=== PATIENT | female | born 1970 | race Caucasian/White ===

== ENCOUNTER 2018-03-07 14:55 | Observation (INO) | payer SELFPAY ==
[~2018-03-07] VITALS: Ht 165.1 cm; Wt 62.0 kg
[2018-03-07 15:40] LABS: BASO % 0.5 % (0.0-2.0); EOS # 0.1 (0.0-0.7); EOS % 3.2 % (0-4.0); GRAN % 52.9 % (42.2-75.2); LYMPH # 1.3 (1.2-3.4); MEAN CELL VOLUME 73 fl (80.0-100.0); MEAN CORPUSCULAR HGB CONC 33 g/dl (33.0-37.0); MEAN PLATELET VOLUME 10.2 fl (7.4-10.4); MONO # 0.3 (0.1-0.6); MONO % 9.1 % (1.7-9.3); PLATELET COUNT 235 K/mm3 (130-400); RED BLOOD COUNT 2.29 M/mm3 (4.10-5.30); REDCELL DISTRIBUTION WIDTH-CV 18.6 % (11.5-14.5)
[2018-03-07 15:46] LABS: ALBUMIN 4.1 gm/dL (3.5-5.0); BILIRUBIN,TOTAL 0.2 mg/dL (0.0-1.0); CALCIUM 9.2 mg/dL (8.4-10.2); CREATININE, serum 0.99 mg/dL (0.52-1.25); POTASSIUM 3.6 mmol/L (3.4-5.0); TOTAL PROTEIN 6.8 gm/dL (6.4-8.2)
[2018-03-07 15:54] LABS: HEMATOCRIT 16.6 % (37.0-47.0); HEMOGLOBIN 5.4 g/dl (12.5-16.0); MEAN CORPUSCULAR HEMOGLOBIN 24 pg (27.0-31.0)
[2018-03-07 16:31] LABS: COLLECTION METHOD CLEAN CATCH
[2018-03-07 16:33] LABS: PROTHROMBIN TIME 10.8 SECONDS (9.7-12.8)
[2018-03-07 16:36] LABS: PARTIAL THROMBOPLASTIN TIME 34.9 SECONDS (26.0-37.0)
[2018-03-07 16:37] LABS: PH 9 (5-8); SQUAMOUS EPITHELIAL 0-2 /hpf; URINE APPEARANCE Clear; URINE BACTERIA None Seen /hpf; URINE BILIRUBIN Negative (NEGATIVE); URINE BLOOD 2+ (NEGATIVE); URINE COLOR Straw; URINE GLUCOSE Negative (NEGATIVE); URINE KETONE Trace (NEGATIVE); URINE LEUKOCYTE ESTERASE Trace (NEGATIVE); URINE NITRATE Negative (NEGATIVE); URINE PROTEIN(semi-quant) Negative (NEGATIVE); URINE RBC 0-2 /hpf; URINE UROBILINOGEN Negative (NEGATIVE)
[2018-03-07 17:56] LABS: RETIC # 0.03 M/mm3 (0.02-0.16); RETIC % 1.4 % (0.5-3.52)
[2018-03-07 18:01] LABS: IRON,SERUM < 10 ug/dL (35-150); LACTATE DEHYDROGENASE 380 U/L (313-618)
[2018-03-07 18:11] LABS: TOTAL IRON BINDING CAPACITY 438 ug/dL (265-497)
[2018-03-07 18:38] LABS: FERRITIN 3 ng/mL (6-137)
[2018-03-07 18:52] VITALS: BP 101/69; PULSE 73; TEMP 97.9
[2018-03-07 19:08] VITALS: BP 104/68; PULSE 69; TEMP 98
[2018-03-07] MEDS ORDERED: B-12 100 MCG PO (19:22)
[2018-03-07] MEDS ORDERED: VITAMIN B-6100 MG PO (19:23)
[2018-03-07 21:34] VITALS: BP 114/78; PULSE 64; TEMP 98.4
[2018-03-07] MEDS ORDERED: OMEGA-3 1000 MG1 CAP PO (22:28)
[2018-03-07 22:40] VITALS: BP 118/72; PULSE 68; PULSE 76; TEMP 98.3
[2018-03-08 00:01] VITALS: BP 99/55; PULSE 60; TEMP 98
[2018-03-08 00:15] VITALS: BP 99/55; PULSE 60; TEMP 98.9
[2018-03-08 01:31] LABS: HEMATOCRIT 23.2 % (37.0-47.0); HEMOGLOBIN 7.6 g/dl (12.5-16.0)
[2018-03-08 08:10] VITALS: BP 105/66; PULSE 58; TEMP 98.8
[2018-03-08 08:14] LABS: HEMATOCRIT 23.9 % (37.0-47.0); HEMOGLOBIN 7.7 g/dl (12.5-16.0); MEAN CELL VOLUME 79 fl (80.0-100.0); MEAN CORPUSCULAR HEMOGLOBIN 25 pg (27.0-31.0); MEAN CORPUSCULAR HGB CONC 32 g/dl (33.0-37.0); MEAN PLATELET VOLUME 10.5 fl (7.4-10.4); PLATELET COUNT 198 K/mm3 (130-400); RED BLOOD COUNT 3.04 M/mm3 (4.10-5.30); REDCELL DISTRIBUTION WIDTH-CV 17.6 % (11.5-14.5)
[2018-03-08] MEDS ORDERED: FERROUS SU325 MG/TAB PO (08:54)
[2018-03-08 08:55] LABS: BAND 4 % (0-10); BASOPHIL 3 % (0-2); EOSINOPHIL 6 % (0-4); LYMPHOCYTE 32 % (20.0-51.0); NEUTROPHILS 48 % (42.0-75.2)
[2018-03-08 08:57] LABS: HYPOCHROMIA 1+; PLATELET ESTIMATE NORMAL (NORMAL)
[2018-03-08 08:58] LABS: ANISOCYTOSIS 1+; MICROCYTOSIS 1+
== END 2018-03-08 11:32 | disposition home or self-care (01) ==
LOC: COL.ER 14:55 → MEDICAL 17:53
PROVIDERS: Emergency Medicine; Internal Medicine
DX: D53.9 Nutritional anemia, unspecified (principal); N92.0 Excessive and frequent menstruation with regular cycle; R55 Syncope and collapse; Z79.4 Long term (current) use of insulin
CPT/HCPCS: G0378; J7030; P9016

== ENCOUNTER → 2018-12-01 | Outpatient (CLI) | payer OTHER ==
[~2018-12-01] MED LIST: B-12 100 MCG PO; FERROUS SU325 MG/TAB PO; OMEGA-3 1000 MG1 CAP PO; VITAMIN B-6100 MG PO
[2018-12-01 10:48] LABS: BASO % 1.5 % (0.0-2.0); EOS # 0.2 (0.0-0.7); EOS % 7.3 % (0-4.0); GRAN # 1.2 (1.4-6.5); GRAN % 47.3 % (42.2-75.2); HEMATOCRIT 28.5 % (37.0-47.0); HEMOGLOBIN 8.8 g/dl (12.5-16.0); LYMPH # 0.8 (1.2-3.4); LYMPH % 30.2 % (20.0-51.0); MEAN CELL VOLUME 76 fl (80.0-100.0); MEAN CORPUSCULAR HEMOGLOBIN 24 pg (27.0-31.0); MEAN CORPUSCULAR HGB CONC 31 g/dl (33.0-37.0); MEAN PLATELET VOLUME 10.1 fl (7.4-10.4); MONO # 0.4 (0.1-0.6); MONO % 13.7 % (1.7-9.3); PLATELET COUNT 272 K/mm3 (130-400); RED BLOOD COUNT 3.74 M/mm3 (4.10-5.30); REDCELL DISTRIBUTION WIDTH-CV 24.7 % (11.5-14.5)
== END ==
LOC: COL.LAB 10:04
PROVIDERS: Surgery
DX: Z02.71 Encounter for disability determination (principal)

== ENCOUNTER 2019-01-31 07:33 | Inpatient (IN) | payer OTHER ==
[~2019-01-31] VITALS: Ht 165.1 cm; Wt 58.9 kg
[2019-01-31] VITALS (7 sets, daily range): BP systolic 109–142; BP diastolic 68–88; PULSE 66–84; TEMP 97.3–99.4
[2019-01-31 07:56] LABS: BASO # 0.1 (0.0-0.2); BASO % 1.7 % (0.0-2.0); EOS # 0.2 (0.0-0.7); EOS % 6.7 % (0-4.0); GRAN # 1.3 (1.4-6.5); GRAN % 41.8 % (42.2-75.2); LYMPH # 1.1 (1.2-3.4); LYMPH % 37.5 % (20.0-51.0); MEAN CELL VOLUME 83 fl (80.0-100.0); MEAN CORPUSCULAR HGB CONC 32 g/dl (33.0-37.0); MEAN PLATELET VOLUME 9.7 fl (7.4-10.4); MONO # 0.4 (0.1-0.6); PLATELET COUNT 193 K/mm3 (130-400); REDCELL DISTRIBUTION WIDTH-CV 20.3 % (11.5-14.5)
[2019-01-31 08:04] LABS: HEMATOCRIT 23.1 % (37.0-47.0); HEMOGLOBIN 7.3 g/dl (12.5-16.0); MEAN CORPUSCULAR HEMOGLOBIN 26 pg (27.0-31.0)
[2019-01-31 08:06] LABS: ALBUMIN 4.5 gm/dL (3.5-5.0); BILIRUBIN,TOTAL 0.2 mg/dL (0.0-1.0); CALCIUM 8.5 mg/dL (8.4-10.2); CREATININE, serum 0.82 (0.52-1.25); TOTAL PROTEIN 7.5 gm/dL (6.4-8.2)
[2019-01-31 08:08] LABS: POTASSIUM 2.9 mmol/L (3.4-5.0)
[2019-01-31 10:09] LABS: COLLECTION METHOD CATHETER
[2019-01-31 10:18] LABS: PH 8 (5-8); SQUAMOUS EPITHELIAL None Seen /hpf; URINE APPEARANCE Clear; URINE BACTERIA None Seen /hpf; URINE BILIRUBIN Negative (NEGATIVE); URINE BLOOD Negative (NEGATIVE); URINE COLOR Colorless; URINE GLUCOSE Negative (NEGATIVE); URINE KETONE Negative (NEGATIVE); URINE LEUKOCYTE ESTERASE Negative (NEGATIVE); URINE NITRATE Negative (NEGATIVE); URINE PROTEIN(semi-quant) Negative (NEGATIVE); URINE RBC 0-2 /hpf; URINE UROBILINOGEN Negative (NEGATIVE)
--- NOTE | 2019-01-31 10:30 | NUR ---
PT ADMITTED TO FLOOR AT THIS TIME.
--- NOTE | 2019-01-31 11:30 | NUR ---
PT STATING THAT SHE HAS BEEN GETTING DIZZY, HAS HEADACHES AND HAS SOME DOUBLE VISION THAT HAS OCCURED WITH THE BLEEDING SHE HAS BEEN HAVING. SOME NOTED ABD PAIN AND PAIN WITH VOIDING. FRIEND AT BEDSIDE AT THIS TIME. PT REPORTS FEELING COLD, THIS NURSE PROVIDED WARM BLANKET AND AJUSTED ROOM TEMPERATURE. PT VOICING CONSERN ABOUT DISCHARGE AND WANTING TO GET BLOOD TRANSFUSION THEN WANTS TO GO HOME.
--- NOTE | 2019-01-31 13:00 | NUR ---
PT LAYING IN BED RESTING WITH EYES CLOSED AT THIS TIME. NO ISSUES OR CONSERNS VOICED RIGHT NOW.
[2019-01-31 14:38] LABS: CALCIUM 8.5 mg/dL (8.4-10.2); CREATININE, serum 0.82 (0.52-1.25); POTASSIUM 4.1 mmol/L (3.4-5.0)
--- NOTE | 2019-01-31 14:41 | NUR ---
THIS NURSE AND DR GAR CALLED THE [facility] FINISH[facility]. PATIENT EDUCATION AND VERBAL CONSENT WAS GIVEN ABOUT OBTAINING A TRANSVAGINAL ULRASOUND AND BIOPSY AND POSSIBLE ABLASION. THIS NURSE CALLED ULTRASOUND THEY STATED WE WOULD HAVE TO GET A NEW ORDER. THIS NURSE CALLED DOCTOR CORRALES FOR ORDER. DR CORRALES TOLD THIS NURSE THAT WE COULD SET UP SOMETHING OUTPATIENT THAT WOULD BE GOOD DUE TO HIM HAVING A BUSY SCHEDULE TOMORROW. THIS NURSE CALLED DR. GAR AND INFORMED HER OF PROVIDER RESPONSE.
--- NOTE | 2019-01-31 15:00 | NUR ---
PT IS TO GET BLOOD TODAY, AND AT ABOUT NOON TOMORROW DR. CORRALES GOING TO DO PT PROCEDURE. PT WAS NOTIFIED OF THIS. PT EXPRESSED CONSERN ABOUT HER CATS AT HOME AND THAT SHE DOESNT HAVE ENOUGH FOOD FOR THEM AND WONDERED IF SHE WAS ABLE TO LEAVE AND TAKE CARE OF THEM. THIS NURSE INFORMED PATIENT THAT SHE WASNT ABLE TO LEAVE AND THAT IT WOULD BE BEST IF SHE WOULD BE ABLE TO FIND A FRIEND OR SOMEONE WHO COULD CHECK IN ON THEM.
--- NOTE | 2019-01-31 19:13 | NUR ---
THIS NURSE GOT BLOOD CONSENT SIGNED AND ATTEMPTED TO START SECOND IV SITE FOR BLOOD ADMINISTERATION DUE TO FLUID RUNNING THROUGH THE OTHER IV. BLOOD BANK STAFF NOTIFIED ABOUT ORDER. PASSED ON TO BRASS SORTER NURSE ABOUT ORDER AND THAT BLOOD WASNT READY IN BLOOD BANK AT THIS TIME. THIS NURSE HAD TO REENTER LAB ORDER FOR BLOOD BANK, IT DIDNT SHOW UP PREVIOUSLY IN OTHER ORDER.
--- NOTE | 2019-01-31 20:58 | NUR ---
One unit of PRBC's started at this time. Pt. informed of s/s of transfusion reaction. Pt. voices understanding. Will remain with pt. for first 15 minutes of transfusion.
--- NOTE | 2019-01-31 21:13 | NUR ---
Pt. remains stable after first 15 minutes of Blood transfusion. Vitals remains stable. Pt. denies needs.
--- NOTE | 2019-01-31 21:30 | NUR ---
RECIEVED REPORT FROM VAMSI ALVAREZ.
--- NOTE | 2019-01-31 22:18 | NUR ---
PT RESTING IN BED- NO PAIN. BLOOD TRANSFUSION CURRENTLY RUNNING- VITALS UNCHANGED. NO CONCERNS AT THIS TIME. NO NEEDS. CALL LIGHT IN REACH
--- NOTE | 2019-02-01 | NUR ---
BLOOD TRANSFUSION COMPLETE- VSS. REPORTS NO NEEDS. CALL LIGHT IN REACH.
[2019-02-01 04:50] VITALS: BP 110/63; PULSE 77; TEMP 98.2
[2019-02-01 06:03] LABS: BASO % 0.9 % (0.0-2.0); EOS # 0.2 (0.0-0.7); EOS % 3.8 % (0-4.0); GRAN # 2.6 (1.4-6.5); GRAN % 62.1 % (42.2-75.2); LYMPH % 23.1 % (20.0-51.0); MEAN CELL VOLUME 84 fl (80.0-100.0); MEAN CORPUSCULAR HGB CONC 32 g/dl (33.0-37.0); MEAN PLATELET VOLUME 9.8 fl (7.4-10.4); MONO # 0.4 (0.1-0.6); MONO % 9.9 % (1.7-9.3); PLATELET COUNT 193 K/mm3 (130-400); RED BLOOD COUNT 2.96 M/mm3 (4.10-5.30); REDCELL DISTRIBUTION WIDTH-CV 19.4 % (11.5-14.5)
[2019-02-01 06:07] LABS: HEMATOCRIT 24.9 % (37.0-47.0); HEMOGLOBIN 7.9 g/dl (12.5-16.0); MEAN CORPUSCULAR HEMOGLOBIN 27 pg (27.0-31.0)
[2019-02-01 06:17] LABS: CALCIUM 8.2 mg/dL (8.4-10.2); CREATININE, serum 1.03 (0.52-1.25); POTASSIUM 4.7 mmol/L (3.4-5.0)
--- NOTE | 2019-02-01 06:24 | NUR ---
pt had an uneventful night. reported no pain. iv flushes well with iv fluids running at ordered rate. one unit of PRBC given, no chnge in vitals, no reaction. pt npo for procedure later today. no needs at this tiem. call light in reach
--- NOTE | 2019-02-01 07:19 | NUR ---
report given to VAMSI Muñoz. pt sleeping at this time
[2019-02-01 07:50] VITALS: BP 105/83; PULSE 69; TEMP 98.8
--- NOTE | 2019-02-01 11:10 | NUR ---
Plan: Plan is to return home. Patient reports independent living has a friend Austen that will transport her home and assist her in care needs . Assess: SW met with patient in room. Patient speaks [place] but can understand if slow speaking. Dialect heavy but able to understand. Patient reports that she does not have any family close by but resides in town. Patient reports that her niegbhor is the close contact that she has that could make out her wishes but denies having a current phone number. Patient denies the use of any DME's. Patient denies having a PCP. Patient reports that she will use [facility] for medications. (Interpret line ) [phone] if needed. Action: SW educated patient on support services and community resources. No additonal needs at this time. SW will continue to follow for care needs.
--- NOTE | 2019-02-01 11:26 | NUR ---
First visit from the test case developer. No needs right now.
[2019-02-01 11:31] VITALS: BP 121/80; PULSE 62; TEMP 97.8
[2019-02-01 15:21] VITALS: BP 113/74; PULSE 60; TEMP 98.7
--- NOTE | 2019-02-01 16:30 | NUR ---
PT GOING DOWN FOR PROCEDURE BRIEFLY. PREOP LR STARTED, CONSENT ON CHART. PT EDUCATED THAT SHE WOULD BE GOING TO PROCDURE SOON, PT STILL IN AGREANCE TO PROCEDURE. NO QUESTIONS VOICED AT THIS TIME.
[2019-02-01] MEDS ORDERED: IBU600 MG PO (17:52)
[2019-02-01] MEDS ORDERED: LEVOXYL0.025 MG PO (18:03)
[2019-02-01] MEDS ORDERED: FERRO-TIME325 MG PO (18:03)
[2019-02-01 18:27] VITALS: BP 136/85; PULSE 62; TEMP 97.5
--- NOTE | 2019-02-01 18:30 | NUR ---
PT RETURNED FROM PROCEDURE. POST OP VITALS STARTED ON PT. OR STATED SHE HAS VOIDED ALREADY. MEAL TRAY ORDERED FOR PT. NO ISSUES OR CONSERNS VOICED AT THIS TIME.
--- NOTE | 2019-02-01 19:25 | NUR ---
THIS NURSE AND NATHAN VELASQUEZ, CALLED [facility] AND TALKED ABOUT DISCHARGE WITH [facility].
--- NOTE | 2019-02-01 20:08 | NUR ---
PT EDUCATION WAS PROVIDED. IV REMOVED. THIS NURSE PROVIDED A COPY OF THE [facility] INFORMATION, FACILITY WAS FAXED PT INFORMATION AND WAS INSTRUCTED TO GIVE PT A CALL.
== END 2019-02-01 20:18 | disposition home or self-care (01) | DRG 744 ==
LOC: COL.ER 07:33 → MEDICAL 08:32
PROVIDERS: Emergency Medicine; Obstetrics & Gynecology; ADMIT Family Medicine
PROC: 0UDB8ZX Extraction of Endometrium, Via Natural or Artificial Opening Endoscopic, Diagnostic (ICD-10-PCS; principal; 2019-02-01 17:00)
DX: N92.0 Excessive and frequent menstruation with regular cycle (principal); D62 Acute posthemorrhagic anemia; N93.8 Other specified abnormal uterine and vaginal bleeding; N80.0 Endometriosis of uterus; E87.6 Hypokalemia; E03.9 Hypothyroidism, unspecified; Z87.891 Personal history of nicotine dependence
CPT/HCPCS: 99222-AI; 99232-AI; J2405; J2704; J3010; J3475; J3480; J7030; P9016

== ENCOUNTER 2019-04-02 23:03 | Inpatient (IN) | payer SELFPAY ==
[~2019-04-02] VITALS: Ht 165.1 cm; Wt 62.6 kg
[~2019-04-02 23:03] MED LIST changes: +FERRO-TIME325 MG PO; +IBU600 MG PO; +LEVOXYL0.025 MG PO
[2019-04-02 23:55] LABS: MEAN CELL VOLUME 80 fl (80.0-100.0); MEAN CORPUSCULAR HGB CONC 30 g/dl (33.0-37.0); MEAN PLATELET VOLUME 10.3 fl (7.4-10.4); PLATELET COUNT 276 K/mm3 (130-400); RED BLOOD COUNT 1.47 M/mm3 (4.10-5.30); REDCELL DISTRIBUTION WIDTH-CV 18.4 % (11.5-14.5)
[2019-04-02 23:58] LABS: HEMATOCRIT 11.7 % (37.0-47.0); HEMOGLOBIN 3.5 g/dl (12.5-16.0); MEAN CORPUSCULAR HEMOGLOBIN 24 pg (27.0-31.0)
[2019-04-03] VITALS (39 sets, daily range): BP systolic 90–143; BP diastolic 69–99; PULSE 7–91; TEMP 97.3–97.9; O2SAT 100
[2019-04-03 00:03] LABS: PROTHROMBIN TIME 12.1 SECONDS (9.7-12.8)
[2019-04-03 00:05] LABS: PARTIAL THROMBOPLASTIN TIME 28.7 SECONDS (26.0-37.0)
[2019-04-03 00:10] LABS: ALANINE AMINOTRANSFERASE 9 U/L (9-52); ALBUMIN 3.9 gm/dL (3.5-5.0); ALKALINE PHOSPHATASE 46 U/L (50-136); ANION GAP 8 mmol/L (7-16); AST,SGOT 26 U/L (15-37); BILIRUBIN,TOTAL 0.2 mg/dL (0.0-1.0); BLOOD UREA NITROGEN 11 mg/dL (7-17); C-REACTIVE PROTEIN < 0.5 mg/dL (0.0-0.9); CALCIUM 8.5 mg/dL (8.4-10.2); CARBON DIOXIDE 23 mmol/L (22-30); CHLORIDE 106 mmol/L (98-107); CREATININE, serum 1.03 (0.52-1.25); GLUCOSE 87 mg/dL (74-106); LIPASE 168 U/L (23-300); SODIUM 138 mmol/L (137-145); TOTAL PROTEIN 6.6 gm/dL (6.4-8.2)
[2019-04-03 00:19] LABS: TROPONIN-I < 0.012 ng/mL (0.000-0.035)
--- NOTE | 2019-04-03 01:10 | NUR ---
RECEIVED REPORT FROM VAMSI OLGUIN.
--- NOTE | 2019-04-03 01:20 | NUR ---
PATIENT ARRIVED BY WHEELCHAIR TO ICU ROOM 5. PATIENT AMBULATED TO THE BED. VITAL SIGNS WERE OBTAINED AND SKIN WAS ASSESSED. NO SKIN ISSUES OBSERVED. PATIENT APPEARS PALE AND FATIGUED. CARE TAKEN OVER AT THIS TIME.
--- NOTE | 2019-04-03 03:14 | NUR ---
BLOOD HAS BEEN TRANSFUSING FOR THE LAST HOUR. PATIENT IS TOLERATING WELL. VITALS ARE WITHIN NORMAL LIMTIS.
[2019-04-03 04:19] LABS: COLLECTION METHOD CLEAN CATCH
[2019-04-03 04:27] LABS: PH 6 (5-8); SQUAMOUS EPITHELIAL 0-2 /hpf; URINE APPEARANCE Hazy; URINE BACTERIA Rare /hpf; URINE BILIRUBIN Negative (NEGATIVE); URINE BLOOD 3+ (NEGATIVE); URINE COLOR Red; URINE GLUCOSE Negative (NEGATIVE); URINE KETONE Negative (NEGATIVE); URINE LEUKOCYTE ESTERASE Negative (NEGATIVE); URINE NITRATE Negative (NEGATIVE); URINE PROTEIN(semi-quant) 2+ (NEGATIVE); URINE RBC >50 /hpf; URINE UROBILINOGEN Negative (NEGATIVE)
--- NOTE | 2019-04-03 06:56 | NUR ---
SECOND BAG OF BLOOD STARTED AT 0613. PATIENT IS TOLERATING WELL. VITALS WITHIN NORMAL LIMITS. PATIENT DENIES ANY DISCOMFORT.
--- NOTE | 2019-04-03 07:30 | NUR ---
REPORT GIVEN TO VAMSI WOOD.
--- NOTE | 2019-04-03 12:15 | NUR ---
Initial visit; Patient thanked Weight Engineer for letting her know that a Weight Engineer visits not only when someone is dying. Weight Engineer listened, answered questions and offered empathy and future availability. There is some language barrier but Weight Engineer understands there is a kitten that patient is anxious to get home to.
--- NOTE | 2019-04-03 13:19 | NUR ---
SW attended clinical rounds to discuss discharge planning. Patient reports that she in not interested in surgical intervention at this time and does not want to be seen by OBGYN during this admission. Patient would like to consider her options before deciding to do surgery. Patient does not currently have a primary care doctor but has been scheduled with the [facility] in the past. Patient reports she is agreeable to going to the Clinic again. Patient reports is independent at home and does not use any medical equipment or home health services. Patient does not have insurance but reports she has applied for disability and is waiting for approval. SW reported that a financial counselor will meet with patient about financial assistance. No needs at this time.
[2019-04-03 16:25] LABS: BASO % 1.2 % (0.0-2.0); EOS # 0.1 (0.0-0.7); EOS % 3.8 % (0-4.0); GRAN # 2.1 (1.4-6.5); GRAN % 60.8 % (42.2-75.2); LYMPH # 0.8 (1.2-3.4); LYMPH % 23.5 % (20.0-51.0); MEAN CELL VOLUME 81 fl (80.0-100.0); MEAN CORPUSCULAR HGB CONC 34 g/dl (33.0-37.0); MEAN PLATELET VOLUME 10.1 fl (7.4-10.4); MONO # 0.4 (0.1-0.6); MONO % 10.4 % (1.7-9.3); PLATELET COUNT 285 K/mm3 (130-400); RED BLOOD COUNT 3.21 M/mm3 (4.10-5.30); REDCELL DISTRIBUTION WIDTH-CV 16.7 % (11.5-14.5)
[2019-04-03 16:29] LABS: HEMATOCRIT 26.1 % (37.0-47.0); HEMOGLOBIN 8.8 g/dl (12.5-16.0); MEAN CORPUSCULAR HEMOGLOBIN 27 pg (27.0-31.0)
[2019-04-03 16:37] LABS: CALCIUM 8.5 mg/dL (8.4-10.2); CREATININE, serum 1.06 (0.52-1.25); POTASSIUM 4.1 mmol/L (3.4-5.0)
== END 2019-04-03 17:33 | disposition home or self-care (01) | DRG 812 ==
LOC: COL.ER 23:03 → ICU 04-03 00:41 → COL.ER 04-03 00:41 → ICU 04-03 17:33
PROVIDERS: Emergency Medicine; Hospitalist; Nurse Practitioner Family; ADMIT Student in an Organized Health Care Education/Training Program
DX: D62 Acute posthemorrhagic anemia (principal); F17.200 Nicotine dependence, unspecified, uncomplicated; E03.9 Hypothyroidism, unspecified; N92.1 Excessive and frequent menstruation with irregular cycle; N93.8 Other specified abnormal uterine and vaginal bleeding; Z79.1 Long term (current) use of non-steroidal anti-inflammatories (NSAID)
CPT/HCPCS: 99222-AI; 99239; P9016

== ENCOUNTER → 2019-06-05 | Outpatient (CLI) | payer SELFPAY ==
[2019-06-05 13:03] LABS: BASO # 0.1 (0.0-0.2); BASO % 2.3 % (0.0-2.0); EOS # 0.2 (0.0-0.7); EOS % 7.5 % (0-4.0); GRAN # 1.6 (1.4-6.5); GRAN % 51.6 % (42.2-75.2); LYMPH # 0.8 (1.2-3.4); LYMPH % 27.5 % (20.0-51.0); MEAN CELL VOLUME 76 fl (80.0-100.0); MEAN CORPUSCULAR HGB CONC 28 g/dl (33.0-37.0); MEAN PLATELET VOLUME 10.2 fl (7.4-10.4); MONO # 0.3 (0.1-0.6); MONO % 10.8 % (1.7-9.3); PLATELET COUNT 226 K/mm3 (130-400); REDCELL DISTRIBUTION WIDTH-CV 20.1 % (11.5-14.5)
[2019-06-05 13:09] LABS: HEMOGLOBIN 7.3 g/dl (12.5-16.0); MEAN CORPUSCULAR HEMOGLOBIN 21 pg (27.0-31.0)
[2019-06-05 13:10] LABS: HEMATOCRIT 25.8 % (37.0-47.0)
[2019-06-05 13:45] LABS: TSH w REFLEX 21.6 uIU/mL (0.465-4.680)
[2019-06-06 02:39] LABS: FOLATE (FOLIC ACID) 16.2 ng/mL (7.0-31.4)
== END ==
LOC: COL.LAB 11:52
PROVIDERS: Family Medicine
DX: E03.9 Hypothyroidism, unspecified (principal); D50.9 Iron deficiency anemia, unspecified

== ENCOUNTER → 2019-08-10 | Outpatient (CLI) | payer SELFPAY ==
[2019-08-10 19:46] LABS: HEMATOCRIT 27.3 % (37.0-47.0); HEMOGLOBIN 8.2 g/dl (12.5-16.0)
== END ==
LOC: ZLAB.FHCC 14:55
PROVIDERS: Family Medicine
DX: Z01.89 Encounter for other specified special examinations (principal)

== ENCOUNTER → 2019-09-19 | Outpatient (CLI) | payer SELFPAY ==
[2019-09-19 12:14] LABS: BASO # 0.1 (0.0-0.2); BASO % 1.8 % (0.0-2.0); EOS # 0.2 (0.0-0.7); EOS % 6.3 % (0-4.0); GRAN # 1.8 (1.4-6.5); GRAN % 53.7 % (42.2-75.2); LYMPH # 0.9 (1.2-3.4); LYMPH % 26.5 % (20.0-51.0); MEAN CELL VOLUME 79 fl (80.0-100.0); MEAN CORPUSCULAR HGB CONC 31 g/dl (33.0-37.0); MEAN PLATELET VOLUME 10.9 fl (7.4-10.4); MONO # 0.4 (0.1-0.6); MONO % 11.4 % (1.7-9.3); PLATELET COUNT 289 K/mm3 (130-400); RED BLOOD COUNT 3.87 M/mm3 (4.10-5.30); REDCELL DISTRIBUTION WIDTH-CV 24.4 % (11.5-14.5)
[2019-09-19 12:23] LABS: HEMATOCRIT 30.4 % (37.0-47.0); HEMOGLOBIN 9.3 g/dl (12.5-16.0); MEAN CORPUSCULAR HEMOGLOBIN 24 pg (27.0-31.0)
== END ==
LOC: ZLAB.FHCC 10:57
PROVIDERS: Family Medicine
DX: Z01.89 Encounter for other specified special examinations (principal)

== ENCOUNTER → 2019-11-01 | Outpatient (CLI) | payer SELFPAY ==
[2019-11-01 09:56] LABS: MEAN CELL VOLUME 82 fl (80.0-100.0); MEAN CORPUSCULAR HGB CONC 31 g/dl (33.0-37.0); MEAN PLATELET VOLUME 10.2 fl (7.4-10.4); PLATELET COUNT 191 K/mm3 (130-400); RED BLOOD COUNT 3.75 M/mm3 (4.10-5.30); REDCELL DISTRIBUTION WIDTH-CV 19.9 % (11.5-14.5)
[2019-11-01 09:58] LABS: HEMATOCRIT 30.9 % (37.0-47.0); HEMOGLOBIN 9.5 g/dl (12.5-16.0); MEAN CORPUSCULAR HEMOGLOBIN 25 pg (27.0-31.0)
== END ==
LOC: COL.RAD 09:21
PROVIDERS: Family Medicine
DX: D64.9 Anemia, unspecified (principal); E03.9 Hypothyroidism, unspecified; M54.5 Low back pain

== ENCOUNTER 2021-02-10 22:06 | Emergency (ER) | payer SELFPAY ==
[~2021-02-10] VITALS: Ht 165.1 cm; Wt 65.9 kg
[2021-02-10 23:45] LABS: BASO # 0.1 (0.0-0.2); BASO % 2.5 % (0.0-2.0); EOS # 0.3 (0.0-0.7); EOS % 9.8 % (0-4.0); GRAN # 1.1 (1.4-6.5); GRAN % 32.5 % (42.2-75.2); HEMATOCRIT 38.4 % (37.0-47.0); HEMOGLOBIN 13.5 g/dl (12.5-16.0); LYMPH # 1.5 (1.2-3.4); LYMPH % 44.8 % (20.0-51.0); MEAN CELL VOLUME 95 fl (80.0-100.0); MEAN CORPUSCULAR HEMOGLOBIN 33 pg (27.0-31.0); MEAN CORPUSCULAR HGB CONC 35 g/dl (33.0-37.0); MONO # 0.3 (0.1-0.6); MONO % 9.5 % (1.7-9.3); PLATELET COUNT 247 K/mm3 (130-400); RED BLOOD COUNT 4.06 M/mm3 (4.10-5.30); REDCELL DISTRIBUTION WIDTH-CV 14.9 % (11.5-14.5)
[2021-02-10 23:59] LABS: ALBUMIN 5.2 gm/dL (3.5-5.0); BILIRUBIN,TOTAL 0.3 mg/dL (0.0-1.0); CALCIUM 9.2 mg/dL (8.4-10.2); CREATININE, serum 0.85 (0.52-1.25); POTASSIUM 3.8 mmol/L (3.4-5.0)
[2021-02-11 00:38] LABS: COLLECTION METHOD CATHETER
[2021-02-11 00:43] LABS: MUCOUS Present /lpf; PH 6 (5-8); SQUAMOUS EPITHELIAL 0-2 /hpf; URINE APPEARANCE Clear; URINE BACTERIA Rare /hpf; URINE BILIRUBIN Negative (NEGATIVE); URINE BLOOD 2+ (NEGATIVE); URINE COLOR Colorless; URINE GLUCOSE Negative (NEGATIVE); URINE KETONE Negative (NEGATIVE); URINE LEUKOCYTE ESTERASE Negative (NEGATIVE); URINE NITRATE Negative (NEGATIVE); URINE PROTEIN(semi-quant) Negative (NEGATIVE); URINE RBC 0-2 /hpf; URINE UROBILINOGEN Negative (NEGATIVE); URINE WBC 0-2 /hpf
[2021-02-11] MEDS ORDERED: MELATONIN1 MG PO (02:07)
[2021-02-11] MEDS ORDERED: PEPCID 20MG TAB20 MG PO (02:07)
[2021-02-11 02:15] VITALS: BP 135/88; PULSE 68
== END 2021-02-11 02:15 | disposition home or self-care (01) ==
LOC: COL.ER 22:06
PROVIDERS: Emergency Medicine
DX: F10.129 Alcohol abuse with intoxication, unspecified (principal); R10.13 Epigastric pain; R10.11 Right upper quadrant pain; F17.210 Nicotine dependence, cigarettes, uncomplicated; Z88.0 Allergy status to penicillin; Z88.8 Allergy status to other drugs, medicaments and biological substances
CPT/HCPCS: J2405; J7030

== ENCOUNTER → 2021-07-16 | Outpatient (CLI) | payer MEDICAID ==
[~2021-07-16] MED LIST changes: +MELATONIN1 MG PO; +PEPCID 20MG TAB20 MG PO
== END ==
LOC: COL.RAD 11:49
DX: E03.9 Hypothyroidism, unspecified (principal)

== ENCOUNTER 2022-01-14 13:16 | Emergency (ER) | payer MEDICAID ==
[~2022-01-14] VITALS: Ht 170.2 cm; Wt 75.0 kg
[2022-01-14 13:16] VITALS: TEMP 98.5
[2022-01-14 14:20] VITALS: BP 154/98; PULSE 96
[2022-01-18] MEDS ORDERED: BACTRIM DS 8001 TAB PO (03:47)
== END 2022-01-14 14:25 | disposition home or self-care (01) ==
LOC: COL.ER 13:16
DX: S91.012A Laceration without foreign body, left ankle, initial encounter (principal); Z28.310 Unvaccinated for COVID-19; W25.XXXA Contact with sharp glass, initial encounter